=== PATIENT | male | born 1970 | race Two or more races ===

== ENCOUNTER 2023-06-14 20:19 | Emergency (ER) | payer OTHER ==
[~2023-06-14] VITALS: Ht 177.8 cm; Wt 77.1 kg
[2023-06-14] MEDS ORDERED: CHLORTHALIDONE25 MG (20:23)
[2023-06-14] MEDS ORDERED: OLMESARTAN MEDO40 MG (20:23)
[2023-06-14] MEDS ORDERED: 0.9 % SODIUM CHLORIDE 1,000 ML IV ONE (21:45)
[2023-06-14 22:17] LABS: HEMATOCRIT 41.7 % (39.0-48.0); HEMOGLOBIN 14.5 g/dL (13-16.00); MEAN CELL VOLUME 93.1 fL (80.0-100.00); MEAN CORPUSCULAR HEMOGLOBIN 32.4 pg (27.00-32.0); MEAN CORPUSCULAR HGB CONC 34.8 g/dl (32.0-36.0); PLATELET COUNT 224 K/uL (150-450); RED BLOOD COUNT 4.48 M/uL (4.00-6.00); RED CELL DISTRIBUTION WIDTH 12.9 % (11.5-14.5)
[2023-06-14 22:32] LABS: INR 1.02; PARTIAL THROMBOPLASTIN TIME 24.4 SECONDS (22.0-34.0); PROTHROMBIN TIME 10.7 SECONDS (9.0-11.5)
[2023-06-14 22:45] LABS: ALBUMIN 4.2 gm/dL (3.4-5.0); BILIRUBIN TOTAL 0.43 mg/dL (0.3-1.2); CALCIUM 9.4 mg/dL (8.5-10.1); CREATININE SERUM 1.75 mg/dL (0.70-1.30); GFR 40.82; GLOBULINA 2.4 G/DL (2.4-3.5); POTASSIUM 3.44 mEq/L (3.5-5.1); TOTAL PROTEIN 6.6 gm/dL (6.4-8.2); TSH 2.29 uIU/mL (0.358-3.74)
[2023-06-14 22:57] LABS: ABG PH 7.438 (7.35-7.45); ABG PO2 89.7 mmHg (80-100); ABG pCO2 35.4 mmHg (35-45); BASE EXCESS -0.2 mmol/l; BICARBONATE 23.4 mmol/l (23-25); SaO2 97.2 %; Tco2 24.5 mmol/l
[2023-06-14 22:58] LABS: allen test SATISFACTORY; o2 21 %; puncture site RADIAL LEFT
[2023-06-15 02:36] LABS: URINE APPEARANCE Clear; URINE BILIRRUBIN Negative (NEGATIVE); URINE BLOOD Negative; URINE COLOR Yellow; URINE GLUCOSE Negative (NEGATIVE); URINE LEUKOCYTE Negative; URINE NITRATE Negative; URINE PROTEIN Negative (NEGATIVE); URINE UROBILINOGEN 0.2 E.U./dl
[2023-06-15 02:37] LABS: URINE BACTERIA 36.5 uL (0.0-1933); URINE EPITHELIAL CELLS 11.7 uL (0.0-38.8); URINE RBC 7.6 uL (0.0-20.8)
== END 2023-06-15 03:06 | disposition home or self-care (01) ==
LOC: ER 20:19
PROVIDERS: General Practice
DX: E16.2 Hypoglycemia, unspecified (principal); I10 Essential (primary) hypertension; Z20.822 Contact with and (suspected) exposure to COVID-19